=== PATIENT | male | born 1950 | race Caucasian/White ===

== ENCOUNTER 2021-05-13 08:28 | Outpatient (REF) | payer MEDICARE, SELFPAY ==
--- NOTE | 2021-05-13 16:39 | MHC.AU.ANR ---
Adult Audiological Evaluation Date of Visit: 05/13/21 Reason for Appointment: Audiological re-evaluation to monitor the status of Mr. Walls's hearing loss. He has a known bilateral sensorineural hearing loss. He denies any significant changes to his hearing or medical history. He notes that he has some difficulties hearing and understanding his who is soft spoken and in the presence of background noise. He also notes some difficulties following dialogue on TV, especially of the speakers have accents. Does patient feel they have a hearing loss?: Yes If Yes, Which Ear?: Both Ears Has hearing been tested previously?: Yes Previous Hearing Test Results: [facility] [place], 05/02/2020 - Mild to moderately severe sensorineural hearing loss from 3020-5958 Hz. Ear History: History of noise exposure?: Yes: Recreational shooting, music, power tools Medical History: Medical History (Other): Cataract surgery Medication List: Sertraline, Finasteride, Vitamin D, Claritin Otoscopy: Right Ear: Unremarkable Left Ear: Unremarkable Tympanometry: Tympanometry performed due to: To assess integrity of the middle ear system Right Ear: Negative Middle Ear Pressure (Type C) Left Ear: Normal Middle Ear System (Type A) Hearing Evaluation: Transducer(s) Used: Insert Earphones, Bone Conduction Method: Conventional Audiometry Stimuli Used: Pure Tones Right Ear: Description of Hearing: Normal hearing from 250-1500 Hz, sloping to a mild to severe sensorineural hearing loss from 1314-6409 Hz. Left Ear: Description of Hearing: Normal hearing from 250-1500 Hz, sloping to a mild to moderately-severe sensorineural hearing loss from 3054-6822 Hz. Speech Recognition Threshold (SRT): Method Used: Monitored Live Voice Stimuli Used: Spondee Words Right Ear: 25 dBHL Left Ear: 15 dBHL Word Discrimination: Method: Recorded Lists Word Lists Used: NU-6 Right Ear: 100% at 65 dBHL Left Ear: 96% at 65 dBHL QuickSIN: 0 dB SNR loss when presented binaurally at 65 dBHL, indicating normal [id number] understanding abilities. Comparison: Compared to the most recent evaluation: Hearing is stable. Recommendations: Audiological re-evaluation in one year. Hearing protection should be used when around loud noise. Given type and degree of hearing loss, Mr. Walls is considered a candidate for amplification. However, he feels he communicates well in most situations. He chose to defer hearing aids at this time. Diagnosis: Primary Diagnosis: H90.3 Bilateral Sensorineural Hearing Loss Services Performed: Services Performed: Comprehensive Audiological Evaluation (CPT 07436) Tympanometry (CPT 93176) Signature: Provider: Irish Cary, CCC-A
== END 2021-05-13 08:29 | disposition home or self-care (01) ==
LOC: HO.SH 08:28
PROVIDERS: Visit Provider Nurse Practitioner Family
DX: H90.3 Sensorineural hearing loss, bilateral (principal)
CPT/HCPCS: 92557; 92567

== ENCOUNTER 2023-07-20 11:13 | Outpatient (REF) | payer MEDICARE, SELFPAY ==
--- NOTE | 2023-07-20 13:12 | MHC.AU.HA1 ---
Hearing Aid Evaluation Date of Visit: 07/20/23 Historical Information: Description of Hearing: Within normal sloping to moderately-severe sensorineural hearing loss, bilaterally Summary: Hearing aids have been recommended in the past; however, Nhan has not been ready to pursue amplification due to minimal perceived difficulties. Now, with more prevalent hearing troubles and more misunderstandings, he is beginning to realize the effects his hearing loss is having on his daily interactions and is more seriously considering hearing aids. He has a [employer] benefit through his [employer] insurance; however, he is unsure if he would like to utilize that benefit or pursue hearing aids here. Discussed styles, technology levels, and pricing. Nhan would like to consider his options. If he decides to pursue hearing aids here, he will email to confirm and then call to pay the $350.00 consultation fee via phone. Hearing Aid Prescription: Based on the individual?s shared listening needs, communication environments, dexterity, desire for connectivity, and personal preferences, the following prescription for amplification has been made: Right ear: Make, Model, Color: Phonak Audeo L50-R Color: [place] Battery Size: Rechargeable Gore Stitcher/Slim Tube: 2M Type of Earmold/Dome/CShell/SlimTip: Medium open dome Left ear: Left ear prescription to be same as Right Hearing Aid above: Make, Model, Color: Phonak Audeo L50-R Color: [place] Battery Size: Rechargeable Gore Stitcher/Slim Tube: 2M Type of Earmold/Dome/CShell/SlimTip: Medium open dome Accessories/Assistive Technology: System Validation Engineer Plan of Care: Patient is not interested in pursuing new amplification at this time. Primary Diagnosis: H90.3 Bilateral Sensorineural Hearing Loss Signature: Provider: Nahum Beckwith, [facility]
== END 2023-07-20 11:14 | disposition home or self-care (01) ==
LOC: HO.SH 11:13
PROVIDERS: Visit Provider Nurse Practitioner Family
DX: Z01.10 Encounter for examination of ears and hearing without abnormal findings (principal)
CPT/HCPCS: 92557

== ENCOUNTER 2023-08-17 13:28 | Outpatient (REF) | payer SELFPAY | END 2023-08-17 13:29 | disposition home or self-care (01) | LOC: HO.HAP 13:28 | PROVIDERS: Visit Provider Nurse Practitioner Family | DX: Z46.1 Encounter for fitting and adjustment of hearing aid (principal); H90.3 Sensorineural hearing loss, bilateral | CPT/HCPCS: 92591 ==

== ENCOUNTER 2023-09-20 13:25 | Outpatient (REF) | payer SELFPAY ==
--- NOTE | 2023-09-20 15:15 | MHC.AU.HA2 ---
Hearing Instrument Fitting- Adult- Binaural Date of Visit: 09/20/23 Hearing Instruments Dispensed: Right Ear: Make, Model, Color, Serial Number: Aaron Mares L50-R SN: [id number] Color: [place] Intake Assessor Repair Warranty: 11/15/2026 Intake Assessor Loss and Damage Warranty: 11/15/2026 [facility] Service Plan: OPTED OUT Battery Size: Rechargeable Manager Building/Slim Tube: 2M Earmold/Dome/CShell/SlimTip: Medium open dome (no retention tail) Type of Wax Guard: CeruShield Left Ear: Make, Model, Color, Serial Number: Aaron Crafto L50-R SN: [id number] Color: [place] Intake Assessor Repair Warranty: 11/15/2026 Intake Assessor Loss and Damage Warranty: 11/15/2026 [facility] Service Plan: OPTED OUT Battery Size: Rechargeable Manager Building/Slim Tube: 2M Earmold/Dome/CShell/SlimTip: Medium open dome (no retention tail) Type of Wax Guard: CeruShield Accessories/Assistive Technology: Phonak cannery tender engineer ease SN: [id number] Summary of Fitting: Ran feedback analyzer and real ear measures. Underfit in lows; however, did not change acoustic coupling due to already significant occlusion from own voice. Increased occlusion compensation to strong, decreased gain level to 90%, and decreased high frequencies even further. Discussed care, use, and rechargeability including manually turning on/off, volume control use, and changing domes and wax guards. Practiced insertion and removal. Nhan is familiar with hearing aids as he has helped his [id number] with her devices. Explained the importance of daily, consistent use in acclimating to the hearing aids. Did not pair to phone at this time - will do at follow up if interested. Recommendations: A hearing instrument follow-up was scheduled. Diagnosis Code(s): Primary Diagnosis: H90.3 Bilateral Sensorineural Hearing Loss Signature: Provider: Nahum Beckwith, [facility]
== END 2023-09-20 13:26 | disposition home or self-care (01) ==
LOC: HO.HAP 13:25
PROVIDERS: Visit Provider Nurse Practitioner Family
DX: Z46.1 Encounter for fitting and adjustment of hearing aid (principal); H90.3 Sensorineural hearing loss, bilateral
CPT/HCPCS: V5261; V5299

== ENCOUNTER 2023-10-07 13:29 | Outpatient (REF) | payer SELFPAY ==
--- NOTE | 2023-10-07 14:52 | MHC.AU.HA3 ---
Hearing Instrument Follow-Up- Binaural Date of Visit: 10/07/23 Right Ear: Cody, Model, Color, Serial Number: Aaron Mares L50-R SN: [id number] Color: [place] Blister Pack Operator Repair Warranty: 11/15/2026 Blister Pack Operator Loss and Damage Warranty: 11/15/2026 [facility] Service Plan: OPTED OUT Battery Size: Rechargeable Conference Manager/Slim Tube: 2M Earmold/Dome/CShell/SlimTip:Small open dome (no retention tail) Type of Wax Guard: CeruShield Dispensed By: [facility] Date of Fitting: Left Ear: Cody, Model, Color, Serial Number: Aaron Mares L50-R SN: [id number] Color: [place] Blister Pack Operator Repair Warranty: 11/15/2026 Blister Pack Operator Loss and Damage Warranty: 11/15/2026 [facility] Service Plan: OPTED OUT Battery Size: Rechargeable Conference Manager/Slim Tube: 2M Earmold/Dome/CShell/SlimTip: Small open dome (no retention tail) Type of Wax Guard: CeruShield Dispensed By: [facility] Date of Fittin09/20/2023 Follow-Up Summary: Here for follow up. Reports hearing aids are working well. Notes less asks for repetition. Had a couple questions today. Both aids continue to feel itchy in the ears, worse left. Swapped to small domes, improvement reported. Notes right aid seems duller than left, increased gain slightly for highs right. Requested printed manual, dispensed to him. Connected [facility]As to phone for calls/ streaming. Advised to call for appointment if the smaller domes are not working better for him. Recommendations: Recommendations: Hearing instrument follow-up or maintenance as needed. Diagnosis Code(s): Primary Diagnosis: H90.3 Bilateral Sensorineural Hearing Loss Signature: Provider: Nahum Looney, [facility]
== END 2023-10-07 13:30 | disposition home or self-care (01) ==
LOC: HO.HAP 13:29
PROVIDERS: Visit Provider Nurse Practitioner Family
DX: Z13.89 Encounter for screening for other disorder (principal)